=== PATIENT | female | born 1965 | race African-American/Black ===

== ENCOUNTER → 2019-04-13 | Outpatient (CLI) | payer MEDICAID ==
--- NOTE | 2019-04-13 12:36 | RADIOLOGY REPORT (SQ) ---
EXAM DESCRIPTION: CHEST PA/LATERAL COMPLETED DATE/TIME: 04/13/2019 12:22 pm REASON FOR STUDY: PRE-OP COMPARISON: None. EXAM PARAMETERS: NUMBER OF VIEWS: two views TECHNIQUE: Digital Frontal and Lateral radiographic views of the chest acquired. RADIATION DOSE: NA LIMITATIONS: none FINDINGS: LUNGS AND PLEURA: No opacities, masses or pneumothorax. No pleural effusion. MEDIASTINUM AND HILAR STRUCTURES: No masses or contour abnormalities. HEART AND VASCULAR STRUCTURES: Heart normal size. No evidence for failure. BONES: No acute findings. HARDWARE: None in the chest. OTHER: No other significant finding. IMPRESSION: NO SIGNIFICANT RADIOGRAPHIC FINDING IN THE CHEST. TECHNICAL DOCUMENTATION: JOB ID: [id number] 2010 [email or web address]- All Rights Reserved Reading location - IP/workstation name: [email or web address]
[2019-04-13 12:50] LABS: ABSOLUTE EOSINOPHILS # (AUTO) 0.1 10^3/uL (0.0-0.6); ABSOLUTE LYMPHOCYTES (AUTO) 1.6 10^3/uL (0.5-4.7); ABSOLUTE MONOCYTES (AUTO) 0.5 10^3/uL (0.1-1.4); ABSOLUTE NEUT (AUTO) 1.9 10^3/uL (1.7-8.2); BASOPHILS % (AUTO) 0.7 % (0-2); EOSINOPHILS % (AUTO) 2.9 % (0-6); HEMOGLOBIN 13.3 g/dL (12.0-15.5); LYMPHOCYTES % (AUTO) 38.7 % (13-45); MEAN CORPUSCULAR HEMOGLOBIN 28.2 pg (27.0-33.4); MEAN CORPUSCULAR VOLUME 83 fl (80-97); PLATELET COUNT 311 10^3/uL (150-450); RED CELL DISTRIBUTION WIDTH 14.2 % (11.5-14.0); SEGMENTED NEUTROPHILS % (AUTO) 45.7 % (42-78); TOTAL CELLS COUNTED % (AUTO) 100 %; WHITE BLOOD COUNT 4.2 10^3/uL (4.0-10.5)
[2019-04-13 12:51] LABS: APPEARANCE,URINE CLEAR; BILIRUBIN,URINE NEGATIVE (NEGATIVE); COLOR,URINE YELLOW; GLUCOSE, URINE NEGATIVE (NEGATIVE); KETONES,URINE NEGATIVE (NEGATIVE); LEUKOCYTE ESTERASE,URINE NEGATIVE (NEGATIVE); NITRITE,URINE NEGATIVE (NEGATIVE); PROTEIN,URINE NEGATIVE (NEGATIVE); URINE SPECIFIC GRAVITY 1.026; UROBILINOGEN,URINE NEGATIVE mg/dL (<2.0)
[2019-04-13 13:02] LABS: ANION GAP 8 (5-19); BLOOD UREA NITROGEN 12 mg/dL (7-20); CALCIUM 9.7 mg/dL (8.4-10.2); CARBON DIOXIDE 35 mmol/L (22-30); CHLORIDE 97 mmol/L (98-107); GLUCOSE 86 mg/dL (75-110); POTASSIUM 3.6 mmol/L (3.6-5.0)
--- NOTE | 2019-04-13 13:28 | EKG REPORT ---
SEVERITY:- ABNORMAL ECG - SINUS RHYTHM ABNRM R PROG, CONSIDER ASMI OR LEAD PLACEMENT : Confirmed by: Zechariah Meier MD 13-Apr-2019 13:27:24
== END ==
LOC: OD 11:46
PROVIDERS: ATTEND Orthopaedic Surgery
DX: Z01.810 Encounter for preprocedural cardiovascular examination (principal); Z01.811 Encounter for preprocedural respiratory examination; Z01.812 Encounter for preprocedural laboratory examination; M16.11 Unilateral primary osteoarthritis, right hip
CPT/HCPCS: 36415; 71046; 80048; 81001; 85025; 93005; 93010

== ENCOUNTER 2019-05-04 09:00 | Inpatient (IN) | payer MEDICAID ==
[2019-07-06 11:40] LABS: APPEARANCE,URINE CLEAR; BILIRUBIN,URINE NEGATIVE (NEGATIVE); COLOR,URINE STRAW; GLUCOSE, URINE NEGATIVE (NEGATIVE); KETONES,URINE NEGATIVE (NEGATIVE); LEUKOCYTE ESTERASE,URINE NEGATIVE (NEGATIVE); NITRITE,URINE NEGATIVE (NEGATIVE); PROTEIN,URINE NEGATIVE (NEGATIVE); URINE SPECIFIC GRAVITY 1.016; UROBILINOGEN,URINE NEGATIVE mg/dL (<2.0)
[2019-07-06 11:50] LABS: ANION GAP 7 (5-19); BLOOD UREA NITROGEN 14 mg/dL (7-20); CALCIUM 9.8 mg/dL (8.4-10.2); CARBON DIOXIDE 31 mmol/L (22-30); CHLORIDE 99 mmol/L (98-107); GLUCOSE 83 mg/dL (75-110); HEMATOCRIT 39.5 % (36.0-47.0); HEMOGLOBIN 13.3 g/dL (12.0-15.5); MEAN CORPUSCULAR HGB CONC 33.7 g/dL (32.0-36.0); MEAN CORPUSCULAR VOLUME 83 fl (80-97); POTASSIUM 4.6 mmol/L (3.6-5.0); RED BLOOD COUNT 4.75 10^6/uL (3.72-5.28); RED CELL DISTRIBUTION WIDTH 13.5 % (11.5-14.0); WHITE BLOOD COUNT 7.1 10^3/uL (4.0-10.5)
[2019-07-06 12:45] LABS: ABSOLUTE LYMPHOCYTES# (MANUAL) 2.4 10^3/uL (0.5-4.7); ABSOLUTE MONOCYTES # (MANUAL) 0.5 10^3/uL (0.1-1.4); BAND NEUTROPHILS % (MANUAL) 1 % (3-5); BASOPHILS % (MANUAL) 0 % (0-2); EOSINOPHILS % (MANUAL) 1 % (0-6); LYMPHOCYTES % (MANUAL) 32 % (13-45); MONOCYTES % (MANUAL) 7 % (3-13); SEGMENTED NEUTROPHILS % (MAN) 57 % (42-78); TOTAL CELLS COUNTED 100
[2019-07-06 12:46] LABS: PLATELET CLUMPS PRESENT; POLYCHROMASIA SLIGHT; TOXIC VACUOLATION PRESENT
[2019-07-06 12:47] LABS: PLATELET COMMENT ADEQUATE; PLATELET COUNT 252 10^3/uL (150-450)
[2019-07-11] MEDS ORDERED: CEFAZOLIN INJ 1 GM VIAL IV PRN (05:00)
[2019-07-11] MEDS ORDERED: PANTOPRAZOLE SODIUM 20 MG TABLET.DR PO PRN (05:00)
[2019-07-11] MEDS ORDERED: IBUPROFEN 800 MG in NORMAL SALINE 250 ML IV PRN (05:00)
[2019-07-11] MEDS ORDERED: VANCOMYCIN HCL 1,000 MG in DEXTROSE 5%-WATER 250 ML IV PRN (05:00)
[2019-07-11] MEDS ORDERED: LIDOCAINE 0.5% INJ-PF (5 MG/ML) 50 ML SDV SUBCUT PRN (05:00)
[2019-07-11] MEDS ORDERED: LACTATED RINGERS 1000 ML IV PRN (05:00)
[2019-07-11] MEDS ORDERED: OXYCODONE HCL SR 10 MG TABLET PO PRN (05:00)
[2019-07-11] MEDS ORDERED: CEFAZOLIN INJ 1 GM VIAL ONE (05:25)
[2019-07-11] MEDS ORDERED: MIDAZOLAM 2 MG/2 ML INJ ONE (06:23)
[2019-07-11] MEDS ORDERED: FENTANYL CITRATE INJ/PF 100 MCG/2 ML AMPUL ONE (06:23)
[2019-07-11] MEDS ORDERED: TRANEXAMIC ACID INJ/PF 1,000 MG/10 ML SDV ONE (06:24)
[2019-07-11] MEDS ORDERED: PROPOFOL INJ 200 MG/20 ML VIAL IV ONE (06:24)
[2019-07-11] MEDS ORDERED: DEXAMETHASONE SOD PHOSPHATE INJ 4 MG/1 ML VIAL ONE (06:24)
[2019-07-11] MEDS ORDERED: ONDANSETRON HCL INJ/PF 4 MG/2 ML SDV ONE (06:24)
[2019-07-11] MEDS ORDERED: OXYCODONE HCL SR 10 MG TABLET PO ONE (07:37)
[2019-07-11] MEDS ORDERED: PANTOPRAZOLE SODIUM 20 MG TABLET.DR PO ONE (07:37)
[2019-07-11] MEDS ORDERED: THROMBIN (BOVINE) TOPICAL 20000 UNIT VIAL ONE (09:07)
[2019-07-11] MEDS ORDERED: BUPIVACAINE INJ/PF LIPOSOME/PF 266 MG/20 ML SDV ONE (09:07)
[2019-07-11] MEDS ORDERED: ONDANSETRON HCL INJ/PF 4 MG/2 ML SDV IV PRN ×2 (10:49→11:09)
[2019-07-11] MEDS ORDERED: PROMETHAZINE HCL INJ 25 MG/1 ML VIAL IV PRN ×2 (10:49)
[2019-07-11] MEDS ORDERED: MEPERIDINE HCL/PF INJ 25 MG/1 ML DISP.SYRIN IV PRN (10:49)
[2019-07-11] MEDS ORDERED: MORPHINE SULFATE 10 MG/ML INJ IV PRN (10:49)
[2019-07-11] MEDS ORDERED: DIPHENHYDRAMINE HCL 50 MG/ML VIAL IV PRN ×2 (10:49→11:09)
[2019-07-11] MEDS ORDERED: FENTANYL CITRATE INJ/PF 100 MCG/2 ML AMPUL IV PRN ×3 (10:49)
[2019-07-11] MEDS: BUPIVACAINE INJ/PF LIPOSOME/PF 266 MG/20 ML SDV INJ PRN ×2 (10:55→11:02)
[2019-07-11] MEDS ORDERED: TRANEXAMIC ACID INJ/PF 1,000 MG/10 ML SDV IV ONE (11:09)
[2019-07-11] MEDS ORDERED: MAG HYDROX/AL HYDROX/SIMETH SUSP 30 ML UDCUP PO PRN (11:09)
[2019-07-11] MEDS ORDERED: OXYCODONE HCL IR 5 MG TABLET PO PRN (11:09)
[2019-07-11] MEDS ORDERED: ZOLPIDEM TARTRATE 5 MG TABLET PO PRN (11:09)
[2019-07-11] MEDS ORDERED: RINGERS SOLUTION,LACTATED 1,000 ML IV PRN (11:09)
[2019-07-11] MEDS ORDERED: ACETAMINOPHEN 325 MG TABLET PO PRN (11:09)
--- NOTE | 2019-07-11 11:14 | Operative Report ---
Operative Report DATE OF SURGERY: 07/11/19 PREOPERATIVE DIAGNOSIS: Right hip arthritis OPERATION: Right hip arthroplasty SURGEON: JESSI DAVIDSON ANESTHESIA: Spinal TISSUE REMOVED OR ALTERED: Femoral head to pathology ESTIMATED BLOOD LOSS: 75 PROCEDURE: Implants used: Femur: Wilfredo Accolade 2 stem size 4 Acetabular shell: 52 mm hemispherical shell Liner: 36 mm flat cross-link polyethylene liner Head: 36 mm chrome cobalt head -5 neck The patient is placed in a left lateral decubitus position on the operating table. The right lower extremity and hindquarter is prepped and draped in a sterile fashion. A curvilinear incision was made over the greater trochanter a posterior approach the hip was taken. The femoral head is dislocated and the femoral neck transected using an oscillating saw. Attention was next turned to the acetabulum. Soft tissues cleared off the acetabulum using electrocautery. The acetabulum was then prepared using a series of hemispherical reamers until a 52 millimeters reamer is seated. Subsequently a 52 millimeters Wilfredo titanium hemispherical shell is impacted into position . A standard flat 36 millimeters cross-link liner is impacted into the shell. Attention was next turned to the femur. Access is gained to the femoral canal using a box osteotome to the piriformis fossa. The femur is then prepared using a series of broaches until a number 4 broach is seated. A trial reduction was now performed using a 36 millimeters head with -5 neck. Preoperative leg length was recreated and is excellent anterior posterior stability. A decision was made to proceed with the above construct. All trial implants were removed. The wound is irrigated with pulsed lavage. A number 4 stem is impacted into the femoral canal. A trial reduction was again performed with a 36 mm head and a -5 neck. Findings as previously. The hip was dislocated one last time and the final chrome-cobalt head is impacted onto the trunnion. The hip wa for s reduced. Wound is copiously irrigated with pulsed lavage. Sent closed in layers using interrupted Vicryl followed by denis. A sterile dressing is applied and the patient's returned to recovery room in satisfactory patient.
--- NOTE | 2019-07-11 12:40 | RADIOLOGY REPORT (SQ) ---
EXAM DESCRIPTION: PELVIS AP IMAGES COMPLETED DATE/TIME: 07/11/2019 12:06 pm REASON FOR STUDY: Post Op Long Cassette in PACU M16.11 UNILATERAL PRIMARY OSTEOARTHRITIS, RIGHT HI P COMPARISON: None. NUMBER OF VIEWS: One view TECHNIQUE: AP Pelvis LIMITATIONS: None. FINDINGS: MINERALIZATION: Normal. HIPS: Status post right HERNANDEZ; the hardware is in anatomic alignment. There is no periprosthetic fract ure. They are severe osteoarthrosis of the left femoroacetabular joint. PELVIS AND SACRUM: The sacrum is obscured by overlying bowel. PUBIS AND ISCHIUM: The ilioischial and iliopectineal lines are intact. There is no diastasis of the pubic symphysis. LOWER LUMBAR SPINE: Excluded from the [id number]. SOFT TISSUES: Subcutaneous emphysema around the right HERNANDEZ hardware. OTHER: No other finding. IMPRESSION: Uncomplicated right HERNANDEZ hardware with expected immediate postoperative findings. COMMENT: Pelvic fractures are often occult on plain radiographs. If strong clinical suspicion for f racture, recommend CT or MR. TECHNICAL DOCUMENTATION: JOB ID: [id number] 2010 [employer]- All Rights Reserved Reading location - IP/workstation name: [email or web address]
[2019-07-11] MEDS: GABAPENTIN 300 MG CAPSULE PO SCH ×3 (13:38→22:14)
[2019-07-11] MEDS: IBUPROFEN 800 MG in NORMAL SALINE 250 ML IV SCH ×2 (14:50→22:16)
[2019-07-11] MEDS ORDERED: SENNOSIDES/DOCUSATE 8.6-50 MG 1 EACH TABLET PO SCH (18:00)
[2019-07-11] MEDS ORDERED: OXYCODONE HCL SR 10 MG TABLET PO SCH (22:00)
[2019-07-11] MEDS ORDERED: VANCOMYCIN HCL 1,000 MG in DEXTROSE 5%-WATER 250 ML IV ONE (23:00)
[2019-07-12] MEDS: GABAPENTIN 300 MG CAPSULE PO SCH (05:16)
[2019-07-12] MEDS: IBUPROFEN 800 MG in NORMAL SALINE 250 ML IV SCH (05:17)
[2019-07-12 05:41] LABS: HEMATOCRIT 35.6 % (36.0-47.0); HEMOGLOBIN 12.1 g/dL (12.0-15.5); MEAN CORPUSCULAR HEMOGLOBIN 28.1 pg (27.0-33.4); MEAN CORPUSCULAR HGB CONC 33.9 g/dL (32.0-36.0); MEAN CORPUSCULAR VOLUME 83 fl (80-97); PLATELET COUNT 248 10^3/uL (150-450); RED CELL DISTRIBUTION WIDTH 13.2 % (11.5-14.0); WHITE BLOOD COUNT 10.6 10^3/uL (4.0-10.5)
[2019-07-12 06:00] LABS: ANION GAP 6 (5-19); BLOOD UREA NITROGEN 13 mg/dL (7-20); CALCIUM 8.9 mg/dL (8.4-10.2); CARBON DIOXIDE 31 mmol/L (22-30); CHLORIDE 100 mmol/L (98-107); GLUCOSE 165 mg/dL (75-110); POTASSIUM 3.6 mmol/L (3.6-5.0)
[2019-07-12] MEDS ORDERED: PANTOPRAZOLE SODIUM 40 MG TABLET.DR PO SCH (06:00)
--- NOTE | 2019-07-12 07:01 | PDOC DISCHARGE SUMMARY ---
Impression - Admit/DC Date/PCP Admission Date/Primary Care Provider: 07/11/19 06:53 VIOLET COLUNGA NP Discharge Date: 07/12/19 - Discharge Diagnosis (1) Arthritis of right hip Is this a current diagnosis for this admission?: Yes - Additional Information Resuscitation Status: Full Code Discharge Diet: Regular Discharge Activity: Balance Activity w/Rest, No Driving, No tub bath Referrals: VIOLET COLUNGA NP [Primary Care Provider] - Home Medications: Gabapentin 900 mg PO Q8 07/06/19 Hydrochlorothiazide [Hydrodiuril 25 mg Tablet] 25 mg PO QAM 07/06/19 Losartan Potassium [Cozaar 50 mg Tablet] 50 mg PO DAILY 07/06/19 Pravastatin Sodium 20 mg PO QHS 07/06/19 Amitriptyline HCl [Elavil 50 mg Tablet] 50 mg PO HSP PRN 07/11/19 Meloxicam [Mobic] 15 mg PO DAILY 07/11/19 Tramadol HCl [Ultram 50 mg Tablet] 50 mg PO Q6HP PRN 07/11/19 History of Present Illiness History of Present Illness: FREDIS DOMINGUEZ is a 54 year old female Patient is a 54-year-old black female with progressive right hip pain and functional disability second osteoarthritis. Patient is admitted for elective right hip arthroplasty. Hospital Course Hospital Course: Patient is admitted through the operating where she undergoes uncomplicated right hip arthroplasty. She was returned to the floor in satisfactory condition. She makes excellent progress with physical therapy on a weightbearing as taught ambulation. Physical Exam Vital Signs: Temp Pulse Resp BP Pulse Ox 36.6 C 81 17 123/69 98 07/11/19 23:47 07/11/19 23:47 07/11/19 23:47 07/11/19 23:47 07/11/19 23:47 Intake & Output 07/10/19 07/11/19 07/12/19 06:59 06:59 06:59 Intake Total 6269 Output Total 3409 Balance 2860 Weight 115.2 kg General appearance: PRESENT: no acute distress, obese Head exam: PRESENT: normocephalic Respiratory exam: PRESENT: unlabored Cardiovascular exam: PRESENT: RRR GI/Abdominal exam: PRESENT: soft Rectal exam: PRESENT: deferred Extremities exam: PRESENT: other - Right hip dressing clean dry and intact. Leg lengths are equal. Distal neurovascular examination is intact. Skin exam: PRESENT: dry, intact, warm. ABSENT: cyanosis, rash Results Laboratory Results: WBC 10.6 10^3/uL (4.0-10.5) H 07/12/19 05:22 RBC 4.30 10^6/uL (3.72-5.28) 07/12/19 05:22 Hgb 12.1 g/dL (12.0-15.5) 07/12/19 05:22 Hct 35.6 % (36.0-47.0) L 07/12/19 05:22 MCV 83 fl (80-97) 07/12/19 05:22 MCH 28.1 pg (27.0-33.4) 07/12/19 05:22 MCHC 33.9 g/dL (32.0-36.0) 07/12/19 05:22 RDW 13.2 % (11.5-14.0) 07/12/19 05:22 Plt Count 248 10^3/uL (150-450) 07/12/19 05:22 Lymph % (Auto) Not Reportable 07/06/19 10:40 [place] % (Auto) Not Reportable 07/06/19 10:40 Eos % (Auto) Not Reportable 07/06/19 10:40 Baso % (Auto) Not Reportable 07/06/19 10:40 Absolute Neuts (auto) Not Reportable 07/06/19 10:40 Absolute Lymphs (auto) Not Reportable 07/06/19 10:40 Absolute Monos (auto) Not Reportable 07/06/19 10:40 Absolute Eos (auto) Not Reportable 07/06/19 10:40 Absolute Basos (auto) Not Reportable 07/06/19 10:40 Total Counted 100 07/06/19 10:40 Seg Neutrophils % Not Reportable 07/06/19 10:40 Seg Neuts % (Manual) 57 % (42-78) 07/06/19 10:40 Band Neutrophils % 1 % (3-5) L 07/06/19 10:40 Lymphocytes % (Manual) 32 % (13-45) 07/06/19 10:40 Atypical Lymphs % 2 % (0) 07/06/19 10:40 Monocytes % (Manual) 7 % (3-13) 07/06/19 10:40 Eosinophils % (Manual) 1 % (0-6) 07/06/19 10:40 Basophils % (Manual) 0 % (0-2) 07/06/19 10:40 Abs Neuts (Manual) 4.1 10^3/uL (1.7-8.2) 07/06/19 10:40 Abs Lymphs (Manual) 2.4 10^3/uL (0.5-4.7) 07/06/19 10:40 Abs Monocytes (Manual) 0.5 10^3/uL (0.1-1.4) 07/06/19 10:40 Absolute Eos (Manual) 0.1 10^3/uL (0.0-0.6) 07/06/19 10:40 Abs Basophils (Manual) 0.0 10^3/uL (0.0-0.2) 07/06/19 10:40 Toxic Vacuolation PRESENT 07/06/19 10:40 Clumped Platelets PRESENT 07/06/19 10:40 Platelet Comment ADEQUATE 07/06/19 10:40 Polychromasia SLIGHT 07/06/19 10:40 Sodium 136.5 mmol/L (137-145) L 07/12/19 05:22 Potassium 3.6 mmol/L (3.6-5.0) 07/12/19 05:22 Chloride 100 mmol/L (98-107) 07/12/19 05:22 Carbon Dioxide 31 mmol/L (22-30) H 07/12/19 05:22 Anion Gap 6 (5-19) 07/12/19 05:22 BUN 13 mg/dL (7-20) 07/12/19 05:22 Creatinine 0.49 mg/dL (0.52-1.25) L 07/12/19 05:22 Est GFR ( Amer) > 60 (>60) 07/12/19 05:22 Est GFR (MDRD) Non-Af > 60 (>60) 07/12/19 05:22 Glucose 165 mg/dL (75-110) H 07/12/19 05:22 Calcium 8.9 mg/dL (8.4-10.2) 07/12/19 05:22 Serum HCG, Qual NEGATIVE (NEGATIVE) 07/11/19 07:36 Urine Color STRAW 07/06/19 10:40 Urine Appearance CLEAR 07/06/19 10:40 Urine pH 5.0 (5.0-9.0) 07/06/19 10:40 Ur Specific [place] 1.016 07/06/19 10:40 Urine Protein NEGATIVE mg/dL (NEGATIVE) 07/06/19 10:40 Urine Glucose (UA) NEGATIVE mg/dL (NEGATIVE) 07/06/19 10:40 Urine Ketones NEGATIVE mg/dL (NEGATIVE) 07/06/19 10:40 Urine Blood SMALL (NEGATIVE) H 07/06/19 10:40 Urine Nitrite NEGATIVE (NEGATIVE) 07/06/19 10:40 Urine Bilirubin NEGATIVE (NEGATIVE) 07/06/19 10:40 Urine Urobilinogen NEGATIVE mg/dL (<2.0) 07/06/19 10:40 Ur Leukocyte Esterase NEGATIVE (NEGATIVE) 07/06/19 10:40 Urine WBC (Auto) 0 /HPF 07/06/19 10:40 Urine RBC (Auto) 3 /HPF 07/06/19 10:40 Squamous Epi Cells Auto <1 /HPF 07/06/19 10:40 Urine Mucus (Auto) RARE /LPF 07/06/19 10:40 Urine Ascorbic Acid NEGATIVE (NEGATIVE) 07/06/19 10:40 COVID-19 Source NASOPHARYNGEAL 07/06/19 10:35 COVID-19 (MIGEL) NOT DETECTED 07/06/19 10:35 Blood Type A POSITIVE 07/11/19 07:36 Antibody Screen NEGATIVE 07/11/19 07:36 Impressions: Pelvis X-Ray 07/11/19 11:10 IMPRESSION: Uncomplicated right HERNANDEZ hardware with expected immediate postoperative findings. Plan Plan of Treatment: Patient be discharged home with home health services and DME. Follow-up with Dr. Chaves [facility] for surgery in 2 weeks for wound inspection. Time Spent: Less than 30 Minutes Stroke Is this a Stroke Patient?: No Stroke Pt being discharged on Anti-thrombolytic therapy?: Yes Acute Heart Failure - Is this a Heart Failure Patient?: No
[2019-07-12] MEDS ORDERED: HYDROCHLOROTHIAZIDE 25 MG TABLET PO SCH (08:00)
[2019-07-12 08:19] VITALS: BP 159/83
[2019-07-12] MEDS ORDERED: PRENATAL VITAMIN W DHA CAPSULE PO SCH (10:00)
[2019-07-12] MEDS ORDERED: LOSARTAN POTASSIUM 50 MG TABLET PO SCH (10:00)
[2019-07-12] MEDS ORDERED: ASPIRIN 81 MG TABLET, ENT COATED PO SCH (10:00)
== END 2019-07-12 09:09 | disposition home health service (06) | DRG 470 ==
LOC: INOR 07-11 06:53 → 4S 07-11 12:46
PROVIDERS: ADMIT Orthopaedic Surgery; ATTEND Orthopaedic Surgery
PROC: 0SR902Z Replacement of Right Hip Joint with Metal on Polyethylene Synthetic Substitute, Open Approach (ICD-10-PCS; principal; 2019-07-11 09:00)
DX: M16.11 Unilateral primary osteoarthritis, right hip (principal); F32.9 Major depressive disorder, single episode, unspecified; E78.5 Hyperlipidemia, unspecified; I10 Essential (primary) hypertension; Z79.899 Other long term (current) drug therapy; E66.3 Overweight
CPT/HCPCS: 01214; 36415; 72170; 80048; 81001; 84132; 84703; 85025; 85027; 86850; 86900; 86901; 87635; 88304; 88311; 94799; C1776; C9290; C9803; J0690; J1100; J1741; J2250; J2405; J2704; J3010; J3370; J3490; J7050; J7060

== ENCOUNTER → 2019-08-25 | Outpatient (CLI) | payer MEDICAID ==
--- NOTE | 2019-08-25 12:23 | RADIOLOGY REPORT (SQ) ---
EXAM DESCRIPTION: CHEST PA/LATERAL IMAGES COMPLETED DATE/TIME: 08/25/2019 12:15 pm REASON FOR STUDY: PRE-OP COMPARISON: 04/13/2019. EXAM PARAMETERS: NUMBER OF VIEWS: two views TECHNIQUE: Digital Frontal and Lateral radiographic views of the chest acquired. RADIATION DOSE: NA LIMITATIONS: none FINDINGS: LUNGS AND PLEURA: No opacities, masses or pneumothorax. No pleural effusion. MEDIASTINUM AND HILAR STRUCTURES: No masses or contour abnormalities. HEART AND VASCULAR STRUCTURES: Heart normal size. No evidence for failure. BONES: No acute findings. HARDWARE: None in the chest. OTHER: No other significant finding. IMPRESSION: NO SIGNIFICANT RADIOGRAPHIC FINDING IN THE CHEST. TECHNICAL DOCUMENTATION: JOB ID: [id number] 2010 [employer]- All Rights Reserved Reading location - IP/workstation name: [email or web address]
[2019-08-25 13:20] LABS: ABSOLUTE EOSINOPHILS # (AUTO) 0.1 10^3/uL (0.0-0.6); ABSOLUTE LYMPHOCYTES (AUTO) 1.4 10^3/uL (0.5-4.7); ABSOLUTE MONOCYTES (AUTO) 0.4 10^3/uL (0.1-1.4); ABSOLUTE NEUT (AUTO) 2.2 10^3/uL (1.7-8.2); EOSINOPHILS % (AUTO) 2.5 % (0-6); HEMATOCRIT 37.4 % (36.0-47.0); HEMOGLOBIN 12.3 g/dL (12.0-15.5); LYMPHOCYTES % (AUTO) 33.7 % (13-45); MEAN CORPUSCULAR HEMOGLOBIN 27.2 pg (27.0-33.4); MEAN CORPUSCULAR HGB CONC 32.8 g/dL (32.0-36.0); MEAN CORPUSCULAR VOLUME 83 fl (80-97); MONOCYTES % (AUTO) 10.5 % (3-13); PLATELET COUNT 327 10^3/uL (150-450); RED BLOOD COUNT 4.51 10^6/uL (3.72-5.28); RED CELL DISTRIBUTION WIDTH 13.2 % (11.5-14.0); SEGMENTED NEUTROPHILS % (AUTO) 52.3 % (42-78); TOTAL CELLS COUNTED % (AUTO) 100 %; WHITE BLOOD COUNT 4.2 10^3/uL (4.0-10.5)
--- NOTE | 2019-08-25 13:23 | EKG REPORT ---
SEVERITY:- NORMAL ECG - SINUS RHYTHM : Confirmed by: Jim Guevara MD 25-Aug-2019 13:21:45
[2019-08-25 13:29] LABS: APPEARANCE,URINE SLIGHTLY-CLOUDY; BILIRUBIN,URINE NEGATIVE (NEGATIVE); COLOR,URINE YELLOW; GLUCOSE, URINE NEGATIVE (NEGATIVE); KETONES,URINE NEGATIVE (NEGATIVE); LEUKOCYTE ESTERASE,URINE NEGATIVE (NEGATIVE); NITRITE,URINE NEGATIVE (NEGATIVE); PROTEIN,URINE 30 mg/dL (NEGATIVE); URINE SPECIFIC GRAVITY 1.027; UROBILINOGEN,URINE NEGATIVE mg/dL (<2.0)
[2019-08-25 13:43] LABS: ANION GAP 6 (5-19); BLOOD UREA NITROGEN 10 mg/dL (7-20); CALCIUM 9.9 mg/dL (8.4-10.2); CARBON DIOXIDE 31 mmol/L (22-30); CHLORIDE 101 mmol/L (98-107); GLUCOSE 96 mg/dL (75-110); POTASSIUM 4.1 mmol/L (3.6-5.0)
== END ==
LOC: OD 11:38
PROVIDERS: ATTEND Orthopaedic Surgery
DX: Z01.810 Encounter for preprocedural cardiovascular examination (principal); Z01.811 Encounter for preprocedural respiratory examination; Z01.812 Encounter for preprocedural laboratory examination
CPT/HCPCS: 36415; 71046; 80048; 81001; 85025; 93005; 93010

== ENCOUNTER 2019-09-19 10:03 | Inpatient (IN) | payer MEDICAID ==
[~2019-09-19 10:03] MED LIST: BUPIVACAINE HCL 0.25% /EPINEPHRINE INJ/PF 30 ML SDV ONE; BUPIVACAINE INJ/PF LIPOSOME/PF 266 MG/20 ML SDV INJ PRN; CEFAZOLIN INJ 1 GM VIAL IV PRN; CEFAZOLIN INJ 1 GM VIAL ONE; FENTANYL CITRATE INJ/PF 100 MCG/2 ML AMPUL ONE; IBUPROFEN 800 MG in NORMAL SALINE 250 ML IV PRN; LACTATED RINGERS 1000 ML IV PRN; LIDOCAINE 2% INJ-PF (20 MG/ML) 2 ML AMPUL ONE; MIDAZOLAM 2 MG/2 ML INJ ONE; ONDANSETRON HCL INJ/PF 4 MG/2 ML SDV ONE; OXYCODONE HCL SR 10 MG TABLET PO PRN; PANTOPRAZOLE SODIUM 20 MG TABLET.DR PO PRN; PROPOFOL INJ 200 MG/20 ML VIAL IV ONE; TRANEXAMIC ACID INJ/PF 1,000 MG/10 ML SDV ONE; VANCOMYCIN HCL 1,000 MG in DEXTROSE 5%-WATER 250 ML IV PRN
[2019-09-19] MEDS ORDERED: OXYCODONE HCL SR 10 MG TABLET PO ONE (11:03)
[2019-09-19] MEDS ORDERED: PANTOPRAZOLE SODIUM 20 MG TABLET.DR PO ONE (11:03)
[2019-09-19] MEDS ORDERED: LIDOCAINE 2% INJ-PF (20 MG/ML) 10 ML AMPUL ONE (12:54)
[2019-09-19] MEDS ORDERED: AMITRIPTYLINE HCL 50 MG TABLET PO PRN (14:28)
--- NOTE | 2019-09-19 14:28 | Operative Report ---
Operative Report DATE OF SURGERY: 09/19/19 PREOPERATIVE DIAGNOSIS: Left hip arthritis OPERATION: Left hip arthroplasty SURGEON: JESSI DAVIDSON ANESTHESIA: Spinal TISSUE REMOVED OR ALTERED: Femoral head to pathology ESTIMATED BLOOD LOSS: 125 PROCEDURE: Implants used: Femur: Wilton Accolade 2 stem, size 4 Acetabular shell: 56 mm hemispherical shell Liner: A 36 mm flat cross-link polyethylene liner Head: 36 mm chrome cobalt head -5 neck The patient is placed in a right lateral decubitus position on the operating table. The left lower extremity and hindquarter is prepped and draped in a sterile fashion. A curvilinear incision was made over the greater trochanter a posterior approach the hip was taken. Was unable to dislocate the femoral head after multiple releases and tries. Hence an in situ cut is made across the femoral neck using oscillating saw. The head is retrieved using a corkscrew. Attention was next turned to the acetabulum. Soft tissues cleared off the acetabulum using electrocautery. The acetabulum was then prepared using a series of hemispherical reamers until a 56 millimeters reamer is seated. Subsequently a 56 millimeters Wilton titanium hemispherical shell is impacted into position and secured with one screw. A standard flat 36 millimeters cross- link liner is impacted into the shell. Attention was next turned to the femur. Access is gained to the femoral canal using a box osteotome to the piriformis fossa. The femur is then prepared using a series of broaches until a number 4 broach is seated. A trial reduction was now performed using a 36 millimeters head with -5 neck. Preoperative leg length was recreated and is excellent anterior posterior stability. A decision was made to proceed with the above construct. All trial implants were removed. The wound is irrigated with pulsed lavage. A number 4 stem is impacted into the femoral canal. A trial reduction was again performed with a 36 mm head and a -5 neck. Findings as previously. The hip was dislocated one last time and the final chrome-cobalt head is impacted onto the trunnion. The hip was reduced. Wound is copiously irrigated with pulsed lavage. Sent closed in layers using interrupted Vicryl followed by denis. A sterile dressing is applied and the patient's returned to recovery room in satisfactory patient.
[2019-09-19] MEDS ORDERED: ZOLPIDEM TARTRATE 5 MG TABLET PO PRN (14:29)
[2019-09-19] MEDS ORDERED: ONDANSETRON HCL INJ/PF 4 MG/2 ML SDV IV PRN (14:29)
[2019-09-19] MEDS ORDERED: DIPHENHYDRAMINE HCL 50 MG/ML VIAL IV PRN (14:29)
[2019-09-19] MEDS ORDERED: MAG HYDROX/AL HYDROX/SIMETH SUSP 30 ML UDCUP PO PRN (14:29)
[2019-09-19] MEDS ORDERED: ONDANSETRON 4 MG TAB.RAPDIS PO PRN (14:29)
[2019-09-19] MEDS ORDERED: ACETAMINOPHEN 325 MG TABLET PO PRN (14:29)
[2019-09-19] MEDS ORDERED: RINGERS SOLUTION,LACTATED 1,000 ML IV PRN (14:29)
--- NOTE | 2019-09-19 15:59 | RADIOLOGY REPORT (SQ) ---
EXAM DESCRIPTION: PELVIS AP IMAGES COMPLETED DATE/TIME: 09/19/2019 3:20 pm REASON FOR STUDY: Post Op Long Cassette in PACU M16.12 UNILATERAL PRIMARY OSTEOARTHRITIS, LEFT HIP COMPARISON: None. NUMBER OF VIEWS: Two view(s). TECHNIQUE: Digital radiographic images of the right hip post-procedure. LIMITATIONS: None. FINDINGS: BONES: No worrisome or unexpected findings post-procedure. DEVICE: New left total hip arthroplasty. Unchanged right hip replacement. Components of the device i n appropriate location. SOFT TISSUES: No worrisome findings. Expected postoperative soft tissue changes. IMPRESSION: Satisfactory postoperative appearance of the left total hip arthroplasty. TECHNICAL DOCUMENTATION: JOB ID: [id number] 2010 [employer]- All Rights Reserved Reading location - IP/workstation name: [email or web address]
[2019-09-19] MEDS: OXYCODONE HCL IR 5 MG TABLET PO PRN (18:20)
[2019-09-19] MEDS: SENNOSIDES/DOCUSATE 8.6-50 MG 1 EACH TABLET PO SCH (18:20)
[2019-09-19] MEDS ORDERED: TRANEXAMIC ACID INJ/PF 1,000 MG/10 ML SDV IV ONE (19:15)
[2019-09-19] MEDS: TRANEXAMIC ACID INJ/PF 1,000 MG/10 ML SDV IV ONE ×2 (19:38→19:50)
[2019-09-19] MEDS ORDERED: (PENDING PHARMACY ID) (Pravastatin Sodium [Pravastatin Sodium] 20 MG) PO SCH (22:00)
[2019-09-19] MEDS: OXYCODONE HCL SR 10 MG TABLET PO SCH (22:22)
[2019-09-19] MEDS: GABAPENTIN 300 MG CAPSULE PO SCH (22:22)
[2019-09-19] MEDS: IBUPROFEN 800 MG in NORMAL SALINE 250 ML IV SCH (22:22)
[2019-09-20] MEDS ORDERED: VANCOMYCIN HCL 1,000 MG in DEXTROSE 5%-WATER 250 ML IV ONE (02:30)
[2019-09-20] MEDS: OXYCODONE HCL IR 5 MG TABLET PO PRN (03:14)
[2019-09-20] MEDS ORDERED: PANTOPRAZOLE SODIUM 40 MG TABLET.DR PO SCH (06:00)
[2019-09-20 06:18] LABS: HEMATOCRIT 34.2 % (36.0-47.0); HEMOGLOBIN 11.3 g/dL (12.0-15.5); MEAN CORPUSCULAR HEMOGLOBIN 27.5 pg (27.0-33.4); MEAN CORPUSCULAR HGB CONC 33.1 g/dL (32.0-36.0); MEAN CORPUSCULAR VOLUME 83 fl (80-97); PLATELET COUNT 222 10^3/uL (150-450); RED BLOOD COUNT 4.11 10^6/uL (3.72-5.28); RED CELL DISTRIBUTION WIDTH 13.7 % (11.5-14.0); WHITE BLOOD COUNT 8.3 10^3/uL (4.0-10.5)
[2019-09-20 06:29] LABS: ANION GAP 5 (5-19); BLOOD UREA NITROGEN 9 mg/dL (7-20); CALCIUM 8.6 mg/dL (8.4-10.2); CARBON DIOXIDE 32 mmol/L (22-30); CHLORIDE 98 mmol/L (98-107); GLUCOSE 107 mg/dL (75-110); POTASSIUM 3.3 mmol/L (3.6-5.0)
[2019-09-20] MEDS: IBUPROFEN 800 MG in NORMAL SALINE 250 ML IV SCH (06:53)
[2019-09-20] MEDS: GABAPENTIN 300 MG CAPSULE PO SCH (06:53)
--- NOTE | 2019-09-20 07:26 | PDOC DISCHARGE SUMMARY ---
Impression - Admit/DC Date/PCP Admission Date/Primary Care Provider: 09/19/19 10:03 VIOLET COLUNGA NP Discharge Date: 09/20/19 - Discharge Diagnosis (1) Arthritis of left hip Is this a current diagnosis for this admission?: Yes - Additional Information Resuscitation Status: Full Code Discharge Diet: Regular Discharge Activity: Balance Activity w/Rest, No tub bath Referrals: JESSI CHAVES MD [ACTIVE STAFF] - 10/04/19 11:00 am Home Medications: Hydrochlorothiazide [Hydrodiuril 25 mg Tablet] 25 mg PO QAM 07/06/19 Losartan Potassium [Cozaar 50 mg Tablet] 50 mg PO DAILY 07/06/19 Pravastatin Sodium 20 mg PO QHS 07/06/19 Amitriptyline HCl [Elavil 50 mg Tablet] 50 mg PO HSP PRN 07/11/19 Tramadol HCl [Ultram 50 mg Tablet] 50 mg PO Q6HP PRN 07/11/19 Gabapentin [Neurontin 300 mg Capsule] 900 mg PO Q8 09/19/19 History of Present Illiness History of Present Illness: FREDIS DOMINGUEZ is a 54 year old female 54-year-old black female with progressive left hip pain and function disability second osteoarthritis. Patient is admitted for elective left hip arthroplasty. Hospital Course Hospital Course: Patient is admitted through the operating where she undergoes a left hip arthroplasty complicated by a difficulty/inability to dislocate the hip leading to an in situ femoral neck cut. She is returned to the floor in satisfactory mission. She makes excellent progress ambulating with physical therapy. This of the drainage from the dressing is reinforced and subsequent change the first morning. Wound is well approximated. Physical Exam Vital Signs: Temp Pulse Resp BP Pulse Ox 37.0 C 82 17 134/76 H 93 09/20/19 05:38 09/20/19 05:38 09/20/19 05:38 09/20/19 05:38 09/20/19 05:38 Intake & Output 09/19/19 09/20/19 09/21/19 06:59 06:59 06:59 Intake Total 1750 Output Total 120 Balance 1630 Weight 136 kg General appearance: PRESENT: no acute distress, obese Respiratory exam: PRESENT: unlabored Cardiovascular exam: PRESENT: RRR Musculoskeletal exam: PRESENT: other - Well approximated and dry. Leg lengths equal. Distal neurovascular examination is intact. Results Laboratory Results: WBC 8.3 10^3/uL (4.0-10.5) 09/20/19 05:32 RBC 4.11 10^6/uL (3.72-5.28) 09/20/19 05:32 Hgb 11.3 g/dL (12.0-15.5) L 09/20/19 05:32 Hct 34.2 % (36.0-47.0) L 09/20/19 05:32 MCV 83 fl (80-97) 09/20/19 05:32 MCH 27.5 pg (27.0-33.4) 09/20/19 05:32 MCHC 33.1 g/dL (32.0-36.0) 09/20/19 05:32 RDW 13.7 % (11.5-14.0) 09/20/19 05:32 Plt Count 222 10^3/uL (150-450) 09/20/19 05:32 Sodium 134.8 mmol/L (137-145) L 09/20/19 05:32 Potassium 3.3 mmol/L (3.6-5.0) L 09/20/19 05:32 Chloride 98 mmol/L (98-107) 09/20/19 05:32 Carbon Dioxide 32 mmol/L (22-30) H 09/20/19 05:32 Anion Gap 5 (5-19) 09/20/19 05:32 BUN 9 mg/dL (7-20) 09/20/19 05:32 Creatinine 0.55 mg/dL (0.52-1.25) 09/20/19 05:32 Est GFR ( Amer) > 60 (>60) 09/20/19 05:32 Est GFR (MDRD) Non-Af > 60 (>60) 09/20/19 05:32 Glucose 107 mg/dL (75-110) 09/20/19 05:32 Calcium 8.6 mg/dL (8.4-10.2) 09/20/19 05:32 Urine HCG, Qual NEGATIVE (NEGATIVE) 09/19/19 10:14 COVID-19 Source NASOPHARYNGEAL 09/15/19 12:00 COVID-19 (MIGEL) NOT DETECTED 09/15/19 12:00 Blood Type A POSITIVE 09/19/19 11:40 Antibody Screen NEGATIVE 09/19/19 11:40 Impressions: Pelvis X-Ray 09/19/19 14:30 IMPRESSION: Satisfactory postoperative appearance of the left total hip arthroplasty. Plan Plan of Treatment: Weightbearing as tolerated ambulation. Social work to supply DME and home health services. Follow-up with Dr. Chaves and [facility] for surgery in 2 weeks for wound inspection. Time Spent: Less than 30 Minutes Stroke Is this a Stroke Patient?: No Stroke Pt being discharged on Anti-thrombolytic therapy?: Yes Acute Heart Failure - Is this a Heart Failure Patient?: No
[2019-09-20] MEDS ORDERED: HYDROCHLOROTHIAZIDE 25 MG TABLET PO SCH (08:00)
[2019-09-20 08:26] VITALS: BP 130/68
[2019-09-20] MEDS: OXYCODONE HCL SR 10 MG TABLET PO SCH (09:13)
[2019-09-20] MEDS: SENNOSIDES/DOCUSATE 8.6-50 MG 1 EACH TABLET PO SCH (09:14)
[2019-09-20] MEDS ORDERED: LOSARTAN POTASSIUM 50 MG TABLET PO SCH (10:00)
[2019-09-20] MEDS ORDERED: PRENATAL VITAMIN W DHA CAPSULE PO SCH (10:00)
== END 2019-09-20 11:25 | disposition home health service (06) | DRG 470 ==
LOC: INOR 10:03 → 4W 15:44
PROVIDERS: ADMIT Orthopaedic Surgery; ATTEND Orthopaedic Surgery
PROC: 0SRB02Z Replacement of Left Hip Joint with Metal on Polyethylene Synthetic Substitute, Open Approach (ICD-10-PCS; principal; 2019-09-19 12:00)
DX: M16.12 Unilateral primary osteoarthritis, left hip (principal); E78.5 Hyperlipidemia, unspecified; I10 Essential (primary) hypertension; F32.9 Major depressive disorder, single episode, unspecified; Z20.828 Contact with and (suspected) exposure to other viral communicable diseases
CPT/HCPCS: 01214; 36415; 72170; 80048; 81025; 84132; 85027; 86850; 86900; 86901; 87635; 88304; 88311; 94799; C1713; C1776; C9803; J0690; J1741; J2250; J2405; J2704; J3010; J3370; J3490; J7050; J7060